=== PATIENT | female | born 1960 | race Caucasian/White ===

== ENCOUNTER 2020-11-12 11:47 | Emergency (ER) | payer BC, SELFPAY ==
--- NOTE | ~2020-11-12 | CT_ITS ---
EXAMINATION: CT ABDOMEN AND PELVIS WITH CONTRAST CLINICAL INFORMATION: abd pain, diarrhea COMPARISON: None. TECHNIQUE: Multidetector volumetric imaging was performed from the superior aspect of the liver through the pubic symphysis following administration of 85 cc of Omnipaque intravenous contrast Sagittal and coronal reformatted images were obtained on the technologist workstation.. This CT examination was performed using dose optimization techniques as appropriate, variously including the following: *Automated exposure control *Adjustment of mA and/or kV according to patient size (this includes techniques or standardized protocols for targeted exams where dose is matched to indication/reason for exam; i.e. extremities or head) *Use of iterative reconstruction technique DLP: 619 mGy-cm FINDINGS: LUNG BASES: The visualized lung bases are unremarkable. LIVER, GALLBLADDER, AND BILIARY TREE: Scattered low-attenuation probable cysts seen within the liver parenchyma some are too small to characterize further. There is mild intrahepatic and extra hepatic biliary ductal dilatation to the ampulla. Common bile duct measures up to 1.5 cm in diameter. The gallbladder surgically absent. PANCREAS: Unremarkable. SPLEEN: Unremarkable. ADRENAL GLANDS: Unremarkable. KIDNEYS AND URETERS: Tiny millimeter size low-attenuation probable cortical cysts bilaterally. Otherwise the kidneys are normal in size, shape, and attenuation. No hydronephrosis, hydroureter, or calculi seen. No perinephric stranding. BLADDER: Decompressed GASTROINTESTINAL TRACT: Scattered colonic diverticulosis but no obvious diverticulitis. Visualized small bowel unremarkable ABDOMINAL WALL: No significant hernia is appreciated. LYMPHOVASCULAR STRUCTURES: Vascular calcification within the aorta PELVIC VISCERA: Tiny amount of air at the vaginal fornix. Uterus unremarkable. OSSEOUS STRUCTURES: Posterior spinal fusion and L4-S1. No acute bony abnormality seen. CT/CT abdomen pelvis w con IMPRESSION: Few scattered colonic diverticula are seen but no evidence for diverticulitis. Gallbladder surgically absent. There is mild intra and extrahepatic biliary ductal dilatation with common bile duct measuring up to 1.5 cm in maximal diameter. No radiopaque filling defects are seen in the common duct.
[2020-11-12 12:02] VITALS: BP 125/67; PULSE 87; RESP 16; TEMP 36.3; O2SAT 97; BMI 30.1
[2020-11-12 15:40] LABS: Glucose Urine UA NEG (NEG); Leukocyte Esterase Urine NEG (NEG); Nitrite Urine NEG (NEG); Specific Gravity - Urine >= 1.030 (1.005-1.025); Urine Blood TRACE (NEG); Urine Ketones >=80 MG/DL (NEG); Urine Protein TRACE MG/DL (NEG-TRACE)
[2020-11-12 15:45] LABS: Appearance Urine HAZY; Color Urine YELLOW
[2020-11-12 15:54] LABS: Bacteria Urine 1+ /LPF; Mucus Urine 3+ /LPF; RBC Urine 0-2 /HPF (0); Squamous Epithelial Cell Urine 3+ /LPF; WBC Urine 0 /HPF (0-4)
--- NOTE | 2020-11-12 16:37 | ED.NAVMDI ---
HPI - Nausea/Vomiting/Diarrhea General Chief complaint: Nausea/Vomiting/Diarrhea Stated complaint: loss bladder control, and bowel control,weekness Time Seen by Provider: 11/12/20 16:37 Source: patient and family Mode of arrival: ambulatory Limitations: no limitations History of Present Illness HPI Narrative: 59-year-old female presents with 5 days of diarrhea, abdominal pain, poor p.o. intake, incontinence of bowel and bladder. She does not report any other concerning symptoms. Denies fevers, chills, chest pain or pressure, palpitations, abdominal distention, hematuria, melena, hematochezia, loss of balance, or any other concerning symptoms. MD elicited complaint: diarrhea and abdominal pain Onset (ago): day(s) (5) Description of vomiting: watery Description of diarrhea: watery Associated nausea: Yes Associated abdominal pain: Yes Location of pain: diffuse Pain consistency: constant Severity: moderate Pain scale (0-10): 7 Quality: stabbing and aching Exacerbating factors: eating, bowel movement, movement and exertion Relieving factors: none Associated symptoms: denies other symptoms Related Data Previous Rx's Medication Instructions Recorded diphenoxylate-atropine 2.5 1 tab PO BID PRN #20 tab 11/12/20 mg-0.025 mg tablet (Lomotil) ondansetron HCl 4 mg tablet 4 mg PO Q8H PRN #10 tab 11/12/20 (Zofran) Allergies Allergy/AdvReac Type Severity Reaction Status Date / Time gabapentin Allergy Itching Verified 11/12/20 12:10 Penicillins Allergy Unknown Verified 11/12/20 12:10 Sulfa (Sulfonamide Allergy Unknown Verified 11/12/20 12:10 Antibiotics) Review of Systems Review of Systems: Constitutional: No Weight loss, No Fever, No Chills, No Night Sweats, positive Fatigue, positive Malaise ENT/Mouth: No Hearing loss, No Ear Pain, No Nasal Congestion, No Sinus Pain, No Hoarseness, No sore throat, No Rhinorrhea, No Swallowing Difficulty Eyes: No Eye Pain, No Swelling, No Redness, No Foreign Body, No Discharge, No Vision Changes Cardiovascular: No Chest Pain, No SOB, No Dyspnea on Exertion, No Orthopnea, No Edema, No Palpitations Respiratory: No Cough, No Sputum, No Wheezing, No Smoke Exposure, No Dyspnea Gastrointestinal: Positive bowel incontinence, Positive Nausea, no Vomiting, positive Diarrhea, positive abdominal Pain, No Hematochezia, No Melena Genitourinary: no irregular bleeding, No Dysuria, No Urinary Frequency, No Hematuria, positive Urinary Incontinence, No Urgency, No Flank Pain, No Urinary Flow Changes, No Hesitancy Musculoskeletal: No joint pain, No Myalgias, No Joint Swelling Skin: No Skin Lesions, No rash Neuro: No Weakness, No Numbness, No Paresthesias, No Loss of Consciousness, No Dizziness, No Headache Psych: No Anxiety/Panic, No Depression, No SI/HI/AH/VH, No Social Issues Heme/Lymph: No Bruising, No Bleeding,No Lymphadenopathy Endocrine: No Polyuria, No Polydipsia, No Temperature Intolerance Yes all other systems are reviewed and are negative Gastrointestinal: Gastrointestinal: Reports nausea PMFSH Past Medical History Attestation statement: The following information was validated with the patient. Source: old records reviewed Medical History Degenerative disc disease Depression Social History Social History Advance Directives: No Advance Directives Information Provided: No Physical Exam Vital Signs: Vital Signs: Last Vital Signs Temp 97.6 F 11/12/20 17:47 Pulse 65 11/12/20 19:13 Resp 16 11/12/20 19:13 BP 139/70 11/12/20 19:13 Pulse Ox 98 11/12/20 19:13 Body Mass Index 30.1 Appearance: Alert. Oriented X3. Moderate distress. Eyes: Pupils equal, round and reactive to light. Sclera nonicteric ENT: Pharynx normal. Dry mucous membranes Neck: Normal inspection. Neck supple. CVS: Normal heart rate and rhythm. Pulses normal. Respiratory: No respiratory distress. Breath sounds normal. Abdomen: Soft and diffusely tender greater in the lower quadrants than upper Skin: Skin warm and dry. Normal skin color. Normal skin turgor. Extremities: Mild nonpitting lower extremity edema. Moves all extremities against resistance. Neuro: No motor deficit. No sensory deficit. Cranial nerves 2-12 intact. No focal neural deficits. No indication of cauda equina. Course Course Course Narrative: 59-year-old female presents with 5 days of GI symptoms. No fevers, chills, sick contacts. Will order labs, and resuscitate with fluids. Urinalysis is clear. CT scan is negative for acute findings. Plan care is to discharge home. MDM - Nausea/Vomiting/Diarrhea MDM Narrative Medical decision making narrative: Differential Diagnosis Differential diagnosis: Likely traveler's diarrhea, food poisoning, gastroenteritis, clostridium difficile infection and dehydration Medical Records Attestation: I reviewed the patient's medical records. Lab Data Attestation: I reviewed the patient's lab results. Result diagrams: 11/12/20 17:45 11/12/20 17:45 Labs: Lab Results 11/12/20 11/12/20 11/12/20 Range/Units 15:25 17:45 17:45 WBC 7.3 (4.8-10.8) X10*3/uL RBC 4.87 (4.20-5.50) X10*6/uL Hgb 14.9 (12.0-16.0) g/dl Hct 45.4 (37-47) % MCV 93.2 (80-98) fL MCH 30.6 (27.0-33.0) pg MCHC 32.8 (31.0-35.0) g/dl RDW 13.8 (11.0-16.0) % Plt Count 305 (160-400) X10*3/uL MPV 9.1 L (9.4-12.3) fL Immature Gran % (Auto) 0.1 (0.0-0.4) % Neut % (Auto) 62.0 (45-73) % Lymph % (Auto) 21.9 (20-40) % [place] % (Auto) 8.6 (2-11) % Eos % (Auto) 6.4 H (0-4) % Baso % (Auto) 1.0 (0-2) % Lymph # (Auto) 1.6 (1.2-4.9) X10*3/uL [place] # (Auto) 0.6 (0.1-1.2) X10*3/uL Eos # (Auto) 0.5 H (0.0-0.4) X10*3/uL Baso # (Auto) 0.1 (0.0-0.2) X10*3/uL Abs Immat Gran (auto) 0.01 (0.00-0.03) X10*3/uL Absolute Neuts (auto) 4.5 (2.0-8.3) X10*3/uL Absolute Nucleated RBC 0.000 (0.0-0.012) X10*3/uL Nucleated RBC % (auto) 0.0 (0.0-0.2) /100WBC Sodium 138 (135-145) mmol/L Potassium 3.6 (3.3-5.1) mmol/L Chloride 106 (96-108) mmol/L Carbon Dioxide 17 L (22-29) mmol/L Anion Gap 19 (12-20) BUN 8 L (9-16) mg/dL Creatinine 0.66 (0.5-1.4) mg/dL Estim Creat Clear Calc 88.0 Estimated GFR > 60 Random Glucose 68 (60-115) mg/dL Calcium 9.0 (8.4-10.2) mg/dL Troponin I High Sens (<3.5-17.0) ng/L Lipase 36 (8-78) U/L Urine Color YELLOW Urine Appearance HAZY Urine pH 6.0 (5.0-8.0) Ur Specific [place] >= 1.030 H (1.005-1.025) Urine Protein TRACE (NEG-TRACE) MG/DL Urine Glucose (UA) NEG (NEG) MG/DL Urine Ketones >=80 (NEG) MG/DL Urine Blood TRACE (NEG) Urine Nitrite NEG (NEG) Ur Leukocyte Esterase NEG (NEG) Urine RBC 0-2 (0) /HPF Urine WBC 0 (0-4) /HPF Ur Squamous Epith Cells 3+ /LPF Urine Bacteria 1+ /LPF Urine Mucus 3+ /LPF /09/27 Range/Units 17:45 WBC (4.8-10.8) X10*3/uL RBC (4.20-5.50) X10*6/uL Hgb (12.0-16.0) g/dl Hct (37-47) % MCV (80-98) fL MCH (27.0-33.0) pg MCHC (31.0-35.0) g/dl RDW (11.0-16.0) % Plt Count (160-400) X10*3/uL MPV (9.4-12.3) fL Immature Gran % (Auto) (0.0-0.4) % Neut % (Auto) (45-73) % Lymph % (Auto) (20-40) % [place] % (Auto) (2-11) % Eos % (Auto) (0-4) % Baso % (Auto) (0-2) % Lymph # (Auto) (1.2-4.9) X10*3/uL [place] # (Auto) (0.1-1.2) X10*3/uL Eos # (Auto) (0.0-0.4) X10*3/uL Baso # (Auto) (0.0-0.2) X10*3/uL Abs Immat Gran (auto) (0.00-0.03) X10*3/uL Absolute Neuts (auto) (2.0-8.3) X10*3/uL Absolute Nucleated RBC (0.0-0.012) X10*3/uL Nucleated RBC % (auto) (0.0-0.2) /100WBC Sodium (135-145) mmol/L Potassium (3.3-5.1) mmol/L Chloride (96-108) mmol/L Carbon Dioxide (22-29) mmol/L Anion Gap (12-20) BUN (9-16) mg/dL Creatinine (0.5-1.4) mg/dL Estim Creat Clear Calc Estimated GFR Random Glucose (60-115) mg/dL Calcium (8.4-10.2) mg/dL Troponin I High Sens 4.9 (<3.5-17.0) ng/L Lipase (8-78) U/L Urine Color Urine Appearance Urine pH (5.0-8.0) Ur Specific [place] (1.005-1.025) Urine Protein (NEG-TRACE) MG/DL Urine Glucose (UA) (NEG) MG/DL Urine Ketones (NEG) MG/DL Urine Blood (NEG) Urine Nitrite (NEG) Ur Leukocyte Esterase (NEG) Urine RBC (0) /HPF Urine WBC (0-4) /HPF Ur Squamous Epith Cells /LPF Urine Bacteria /LPF Urine Mucus /LPF Imaging Data CT scan - abdomen: Attestation: I personally reviewed and interpreted this imaging study as follows: Radiologist's impression: FINDINGS: LUNG BASES: The visualized lung bases are unremarkable.? LIVER, GALLBLADDER, AND BILIARY TREE: Scattered low-attenuation probable cysts seen within the liver parenchyma some are too small to characterize further. There is mild intrahepatic and extra hepatic biliary ductal dilatation to the ampulla. Common bile duct measures up to 1.5 cm in diameter. The gallbladder surgically absent.? PANCREAS: Unremarkable.? SPLEEN: Unremarkable.? ADRENAL GLANDS: Unremarkable.? KIDNEYS AND URETERS: Tiny millimeter size low-attenuation probable cortical cysts bilaterally. Otherwise the kidneys are normal in size, shape, and attenuation. No hydronephrosis, hydroureter, or calculi seen. No perinephric stranding. ? BLADDER: Decompressed? GASTROINTESTINAL TRACT: Scattered colonic diverticulosis but no obvious diverticulitis. Visualized small bowel unremarkable? ABDOMINAL WALL: No significant hernia is appreciated.? LYMPHOVASCULAR STRUCTURES: Vascular calcification within the aorta? PELVIC VISCERA: Tiny amount of air at the vaginal fornix. Uterus unremarkable. OSSEOUS STRUCTURES: Posterior spinal fusion and L4-S1. No acute bony abnormality seen.? CT/CT abdomen pelvis w con IMPRESSION: Few scattered colonic diverticula are seen but no evidence for diverticulitis. ? Gallbladder surgically absent. There is mild intra and extrahepatic biliary ductal dilatation with common bile duct measuring up to 1.5 cm in maximal diameter. No radiopaque filling defects are seen in the common duct. ECG Data Attestation: I personally reviewed and interpreted this ECG as follows: ECG interpretation date: 11/12/20 ECG interpretation time: 17:24 Interpretation: Vent. rate 61 BPM OK interval 132 ms QRS duration 80 ms QT/QTc 458/461 ms P-R-T axes 20 -20 -59 Sinus rhythm with Premature atrial complexes ST & T wave abnormality, consider anterolateral ischemia Abnormal ECG No previous ECGs available ECG obtained from [facility], no significant changes from July 07, 2018 Discharge Plan Discharge Clinical Impression: Dehydration, Gastroenteritis Patient Disposition: Home, Self-Care Instructions: Dehydration (ED), Gastroenteritis (ED) Additional Instructions: You were evaluated for nausea and diarrhea. CT scan of abdomen and pelvis negative for acute findings. Your EKGs do not show any changes indicating ST depression or elevation. Your cardiac enzymes are negative. Your urinalysis is negative. Please follow-up with Gastroenterology for bowel incontinence. I prescribed Lomotil. Please take this medication as directed. Thank you for choosing this emergency department for evaluation. Please follow-up with primary care physician as needed. Return to the emergency department for any new, concerning, or worsening symptoms. Prescriptions: New diphenoxylate-atropine [Lomotil] 2.5-0.025 mg tablet 1 tab PO BID PRN (Reason: diarrhea) Qty: 20 RF: 0 ondansetron HCl [Zofran] 4 mg tablet 4 mg PO Q8H PRN (Reason: nausea and vomiting) Qty: 10 RF: 0 Referrals: Irish Bradley MD [Physician] - 2 days (Bowel incontinence) Stand Alone Forms: Work/School Release Interventions: ED Discharge Assessment Last Done: 11/12/20 22:16 Discharge Date/Time: 11/12/20 22:16
--- NOTE | 2020-11-12 16:45 | ECG_ITS ---
Test Reason : NAUSEA Blood Pressure : / mmHG Vent. Rate : 061 BPM Atrial Rate : 061 BPM P-R Int : 132 ms QRS Dur : 080 ms QT Int : 458 ms P-R-T Axes : 020 -20 -59 degrees QTc Int : 461 ms Sinus rhythm with Premature atrial complexes ST & T wave abnormality, consider anterolateral ischemia Abnormal ECG No previous ECGs available Referred By: Aruna Dye Electronically Signed By:Rylan Spann
[2020-11-12 17:25] VITALS: BP 145/64; PULSE 59; RESP 16; O2SAT 99
[2020-11-12] MEDS: 0.9 % Sodium Chloride 1,000 ML 999 ML IVCONT (17:25)
[2020-11-12 17:47] VITALS: BP 139/59; PULSE 63; RESP 16; TEMP 36.4; O2SAT 98
[2020-11-12 17:49] LABS: MANUAL DIFF FLAG NO
[2020-11-12 18:01] LABS: Basophils Absolute Auto 0.1 X10*3/uL (0.0-0.2); Eosinophils Absolute Auto 0.5 X10*3/uL (0.0-0.4); Eosinophils Percent Auto 6.4 % (0-4); Hematocrit 45.4 % (37-47); Hemoglobin 14.9 g/dl (12.0-16.0); Imm Gran Abs Auto 0.01 X10*3/uL (0.00-0.03); Imm Gran Pct Auto 0.1 % (0.0-0.4); Lymphocytes Absolute Auto 1.6 X10*3/uL (1.2-4.9); Lymphocytes Percent Auto 21.9 % (20-40); Mean Corpuscular HGB Conc 32.8 g/dl (31.0-35.0); Mean Corpuscular Hemoglobin 30.6 pg (27.0-33.0); Mean Corpuscular Volume 93.2 fL (80-98); Mean Platelet Volume 9.1 fL (9.4-12.3); Monocytes Absolute Auto 0.6 X10*3/uL (0.1-1.2); Monocytes Percent Auto 8.6 % (2-11); Neutrophils Absolute Auto 4.5 X10*3/uL (2.0-8.3); Platelet Count 305 X10*3/uL (160-400); Red Blood Count 4.87 X10*6/uL (4.20-5.50); Red Cell Distribution Width 13.8 % (11.0-16.0); White Blood Count 7.3 X10*3/uL (4.8-10.8)
[2020-11-12 18:33] LABS: Anion Gap 19 (12-20); Blood Urea Nitrogen 8 mg/dL (9-16); Carbon Dioxide 17 mmol/L (22-29); Chloride 106 mmol/L (96-108); Estimated Glomerular Filt Rate > 60; Glucose Random 68 mg/dL (60-115); Lipase 36 U/L (8-78); Potassium 3.6 mmol/L (3.3-5.1); Sodium 138 mmol/L (135-145)
[2020-11-12 18:38] LABS: Troponin-I High Sensitivity 4.9 ng/L (<3.5-17.0)
[2020-11-12 19:13] VITALS: BP 139/70; PULSE 65; RESP 16; O2SAT 98
[2020-11-12] MEDS: iohexoL 350 MG/ML 100 ML INFUS..BTL 85 ML IV (19:47)
== END 2020-11-12 22:16 | disposition home or self-care (01) ==
PROVIDERS: Nurse Practitioner Family; Emergency Provider Emergency Medicine Emergency Medical Services; PCP Internal Medicine
DX: K52.9 Noninfective gastroenteritis and colitis, unspecified (principal); E86.0 Dehydration
CPT/HCPCS: 36415; 74177; 80048; 81001; 83690; 84484; 85025; 93005; 96360; 99284; Q9967

== ENCOUNTER 2021-04-28 14:53 | Outpatient (REF) | payer BC, SELFPAY ==
[2021-04-28 15:42] LABS: COVID-19 Test Positive (Negative); IDNOW Serial# 16C4AD1C
== END 2021-04-28 14:54 | disposition home or self-care (01) ==
LOC: HO.LAB 14:53
PROVIDERS: Visit Provider Internal Medicine
DX: Z20.822 Contact with and (suspected) exposure to COVID-19 (principal)
CPT/HCPCS: 87635; C9803

== ENCOUNTER 2024-03-17 10:37 | Outpatient (AMB) | payer OTHER, SELFPAY ==
--- NOTE | 2024-03-17 11:09 | AM.OFFWIN_ITS ---
Intake Vital Signs 03/17/24 11:10 Weight 143 lb BP 110/74 Blood Pressure Location Lt brachial Position Sitting Pulse 56 Pulse Source Pulse Oximeter Pulse Oximetry (%) 97 Oxygen Delivery Method Room Air Intake Visit Reasons: EP-body rash and extremely itching Intake Note: Patient here for rash all over body that has been present for about 1 month Patient Tobacco Use Status: Former Tobacco user Allergies gabapentin Allergy (Verified 03/17/24 11:11) Itching Penicillins Allergy (Verified 03/17/24 11:11) Unknown Sulfa (Sulfonamide Antibiotics) Allergy (Verified 03/17/24 11:11) Unknown Do you need a note to return to daycare/school/sports/work: No HPI HPI Comments History of Present Illness Details History of Present Illness The patient is a 63-year-old female presenting with severe pruritus. She reports having an intensely itchy rash that began over a month ago. The rash is characterized by raised, red bumps and is located on her back, both arms, legs, and chest. The patient denies new medications, clothing, sheets, soaps, lotions, or detergents that could have led to this reaction. She has very sensitive skin but notes no visible bite armando on the affected areas. The itchiness is described as being so severe that scratching does not provide relief. [id number] Benadryl has been used but does not alleviate the symptoms effectively, leading only to drowsiness. The itchiness started without any clear inciting event and has not improved over time. The patient also mentioned experimenting with a lavender dye in her hair, but she is unsure if it is related to her symptoms. She has not found relief from showers, and has attempted to use calamine lotion with limited success due to difficulty applying it to her back. No systemic symptoms were reported, and there is no history of outdoor activity or exposure to potential allergens or irritants. Physical Exam General: Cooperative, healthy appearing, comfortable, no acute distress and well developed Orientation: Patient oriented x3 Limitations: No limitations Head: Normal to inspection Ears: Hearing grossly normal bilaterally Nose: Normal Nxternal nose present Face and sinus: ormal facial exam Eyes: Appearance normal, both eyes and all related structures Neck: Normal visual inspection and Yes full ROM Respiratory: Normal respiratory effort and able to speak in complete sentences. Clear to auscultation bilaterally Cardiovascular: Regular rate and rhythm. Normal S1 and S2 GI: Normal to inspection. Soft to palpation and nontender Skin: Raised, red rash noted on both arms, legs, chest, and back. No bite armando. Sensitive skin. Neuro: Patient oriented x3 Extremities: Normal to inspection [facility] Medical History Degenerative disc disease Depression Social History Patient Tobacco Use Status: Former Tobacco user Review of Systems Const All systems reviewed & are unremarkable except as noted in HPI and below Physical Exam Vital Signs: Last Vital Signs Pulse 56 03/17/24 11:10 BP 110/74 03/17/24 11:10 Pulse Ox 97 03/17/24 11:10 Oxygen Delivery Method Room Air 03/17/24 11:10 Assessment & Plan Assessment & Plan (1) Allergic dermatitis: Code(s): L23.9 - Allergic contact dermatitis, unspecified cause Plan: Plan For the identified pruritic dermatitis, I will initiate a tapering course of oral prednisone. The patient will take 60 mg of prednisone for the first two days, followed by a reduction to 40 mg for five days, 20 mg for the next five days, and 10 mg for the final three days, totaling a 15-day taper. This regimen aims to address the inflammation and provide relief from the itching. I will also recommend taking Pepcid, as it manages H2 histamines, to complement the H1 receptor management provided by hydroxyzene, providing a dual approach to the histamine-induced itch. Additionally, hydroxyzine 25 mg at night may be considered as it is a prescription antihistamine that might assist with the itching, instead of Benadryl. The patient is advised to take her medications in the morning to align with her natural cortisol rhythm and reduce potential insomnia. I have suggested cool showers or lukewarm baths with Aveeno oatmeal for symptomatic relief. Further assessment by her PCP and possibly Derm will be needed if the symptoms persist beyond the steroid course. Patient was informed and verbally consented to the use of an ambient scribe for clinic note documentation during this visit. Medications: New prednisone On days 1 through 5 take 2 tablets with breakfast; On days 6 through 10 take 1 tablet with breakfast; On days 11 through 15 take 1/2 tablet with breakfast 20 mg PO QAM 18 tabs 0RF hydroxyzine HCl 25 mg PO BEDTIME 10 tabs 0RF Coding Level of Care Code New Pt Level 3 (13231) Diagnoses Allergic dermatitis L23.9
[2024-03-17 11:10] VITALS: BP 110/74; PULSE 56; O2SAT 97
== END 2024-03-17 11:30 | disposition home or self-care (01) ==
PROVIDERS: PCP Internal Medicine; Visit Provider Physician Assistant
DX: L23.9 Allergic contact dermatitis, unspecified cause (principal)

== ENCOUNTER → 2024-03-17 10:37 | Outpatient (BNVA) | payer OTHER, SELFPAY | PROVIDERS: PCP Internal Medicine; Visit Provider Physician Assistant ==